=== PATIENT | male | born 1985 | race Caucasian/White ===

== ENCOUNTER 2022-05-20 09:56 | Emergency (ER) | payer SELFPAY ==
[~2022-05-20] VITALS: Ht 170.2 cm; Wt 98.4 kg
[2022-05-20 10:09] VITALS: BP_SYST 187
--- NOTE | 2022-05-20 10:12 | NUR ---
Patient to ER bed 3 to gown for evaluation. Side rails up. Report given to Enrique ERICKSON.
--- NOTE | 2022-05-20 10:41 | NUR ---
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
--- NOTE | 2022-05-20 11:30 | NUR ---
GIANFRANCO Campos at bedside examining patient.
[2022-05-20] MEDS ORDERED: LORazepam 2 MG/ML VIAL IVP ONE (12:00)
[2022-05-20] MEDS ORDERED: chlordiazePOXIDE HCL 25 MG CAPSULE PO ONE ×2 (12:00→16:00)
[2022-05-20 12:16] LABS: BASOPHILS % (AUTO) 0.9 % (0.0-2.0); EOSINOPHILS # (AUTO) 0.2 K/uL (0.0-0.4); EOSINOPHILS % (AUTO) 3.5 % (0.0-4.0); HEMATOCRIT 42.1 % (36-54); HEMOGLOBIN 14.7 g/dL (14.0-18.0); LYMPHOCYTES # (AUTO) 1.4 K/uL (1.0-5.5); LYMPHOCYTES % (AUTO) 28.4 % (20.5-51.5); MEAN CORPUSCULAR HEMOGLOBIN 31 pg (27-31); MEAN CORPUSCULAR HGB CONC 35 % (32-36); MEAN CORPUSCULAR VOLUME 90 fL (79.0-98.0); MONOCYTES # (AUTO) 0.4 K/uL (0.0-1.0); MONOCYTES % (AUTO) 8.7 % (1.7-9.3); NEUTROPHILS # (AUTO) 2.9 K/uL (1.8-7.7); NEUTROPHILS % (AUTO) 58.5 % (40.0-70.0); PLATELET COUNT (AUTO) 273 K/uL (130-430); RED BLOOD CELL COUNT(AUTO) 4.67 MIL/uL (4.2-6.2); RED CELL DISTRIBUTION WIDTH 13.5 % (9.0-15.0)
[2022-05-20] MEDS ORDERED: LORazepam 2 MG/ML VIAL ONE (12:25)
[2022-05-20] MEDS ORDERED: chlordiazePOXIDE HCL 25 MG CAPSULE ONE (12:26)
[2022-05-20 12:31] LABS: ANION GAP 9 (5-15); CALCIUM 8.7 mg/dL (8.4-11.0); CHLORIDE 102 mmol/L (98-107); CREATININE 0.87 mg/dL (0.55-1.30); GLUCOSE 103 mg/dL (70-99); POTASSIUM 3.6 mmol/L (3.5-5.1); UREA NITROGEN, BLOOD 11 mg/dL (8-21)
[2022-05-20 12:37] LABS: ALANINE AMINOTRANSFERASE 66 U/L (12-78); ALBUMIN 3.5 g/dL (3.4-4.8); ASPARTATE AMINOTRANSFERASE 42 U/L (10-37); TOTAL BILIRUBIN 1.7 mg/dL (0.0-1.0)
[2022-05-20 12:41] LABS: GFR AFRICAN AMERICAN 126 mL/min (>90)
[2022-05-20] MEDS ORDERED: NACL 0.9% 1,000 ML IV ONE (13:15)
[2022-05-20] MEDS ORDERED: LIB25 PO (15:45)
[2022-05-20 16:06] VITALS: BP_SYST 186
--- NOTE | 2022-05-20 16:06 | NUR ---
Patient given written and verbal discharge instructions and verbalizes understanding. ER MD discussed with patient the results and treatment provided. Patient in stable condition. ID arm band removed. IV catheter removed intact and dressing applied, no active bleeding. Rx of LIBRIUM given. Patient educated on pain management and to follow up with PMD. Pain Scale . Opportunity for questions provided and answered. Medication side effect fact sheet provided.
== END 2022-05-20 16:06 | disposition home or self-care (01) ==
LOC: SED 09:56
DX: F10.239 Alcohol dependence with withdrawal, unspecified (principal); F10.288 Alcohol dependence with other alcohol-induced disorder; I15.9 Secondary hypertension, unspecified; Z79.899 Other long term (current) drug therapy; Y90.6 Blood alcohol level of 120-199 mg/100 ml
CPT/HCPCS: 99291; 96374; 96361; 80053; 83880; 85025; 84484; 36415; 93005; 71045; J2060; J7030; 99285